=== PATIENT | female | born 1970 | race Caucasian/White ===

== ENCOUNTER 2024-05-09 08:56 | Outpatient (CLI) | payer BC | END 2024-05-09 08:57 | disposition home or self-care (01) | LOC: NAV RAD 08:56 | PROVIDERS: ATTEND Nurse Practitioner Family | DX: M54.31 Sciatica, right side (principal); M47.816 Spondylosis without myelopathy or radiculopathy, lumbar region; M16.11 Unilateral primary osteoarthritis, right hip; M76.891 Other specified enthesopathies of right lower limb, excluding foot | CPT/HCPCS: 72100 ==